=== PATIENT | male | born 1985 | race African-American/Black ===

== ENCOUNTER 2017-02-05 08:24 | Emergency (ER) | payer SELFPAY ==
[2017-02-05 08:31] VITALS: BP 116/77
--- NOTE | 2017-02-05 10:22 | ED ---
Upper Extremity Pain - HPI Summary HPI Summary: Patient presents with bilateral hand numbness and tingling worst after awakening this morning. He has had similar symptoms in the past, but he comes today because he states his hands "locked up" this morning and he had difficulty moving both of them. 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 Denies other symptoms. He is otherwise healthy, takes no medications and has no other complaints. The numbness and tingling improved shortly after he began to move them. However, he was concerned. - History of Current Complaint Chief Complaint: EDExtremityUpper Stated Complaint: CANT MOVE HANDS,BOTH ARE PAINFUL AND TINGLY Time Seen by Provider: 02/05/17 08:38 Hx Obtained From: Patient Mechanism Of Injury: Unknown Onset/Duration: Started Hours Ago Timing: Intermittent, Lasting Minutes Severity Initially: Moderate Severity Currently: Mild Pain Location: Wrist, Hand Character: Unable to Describe - numbness/tingling Aggravating Factor(s): Nothing Alleviating Factor(s): Nothing Associated Signs & Symptoms: Positive: Numbness/Tingling - Risk Factors Non-Orthopedic Risk Factor: Negative DVT Risk Factors: Negative Septic Arthritis Risk Factor: Negative Compartment Syndrome Risk Factors: Paresthesias - Allergies/Home Medications Allergies/Adverse Reactions: Allergies Allergy/AdvReac Type Severity Reaction Status Date / Time No Known Allergies Allergy Verified 02/05/17 08:51 PMH/Surg Hx/FS Hx/Imm Hx Previously Healthy: Yes - Immunization History Hx Pertussis Vaccination: No Immunizations Up to Date: Unable to Obtain/Confirm Infectious Disease History: No Infectious Disease History: Denies: Traveled Outside the [place] in Last 30 Days - Social History Occupation: Employed Full-time Lives: With Family Alcohol Use: Rare Hx Substance Use: Yes Substance Use Type: Reports: Marijuana Substance Use Comment - Amount & Last Used: occasional Hx Tobacco Use: No Smoking Status (MU): Never Smoked Tobacco Review of Systems Constitutional: Negative Eyes: Negative Cardiovascular: Negative Respiratory: Negative Positive: no symptoms reported, see HPI Positive: Arthralgia, Myalgia Neurological: Negative Psychological: Normal All Other Systems Reviewed And Are Negative: Yes Physical Exam Triage Information Reviewed: Yes Vital Signs On Initial Exam: Initial Vitals Temp Pulse Resp BP Pulse Ox 97.5 F 56 18 116/77 98 02/05/17 08:28 02/05/17 08:28 02/05/17 08:28 02/05/17 08:28 02/05/17 08:28 Completion Of Physical Exam Limited Due To: Dementia Appearance: Positive: Well-Appearing, No Pain Distress, Well-Nourished Skin: Positive: Warm, Skin Color Reflects Adequate Perfusion Head/Face: Positive: Normal Head/Face Inspection Eyes: Positive: EOMI, KARSTEN, Conjunctiva Clear Neck: Positive: Supple, Nontender, No Lymphadenopathy Respiratory/Lung Sounds: Positive: Clear to Auscultation, Breath Sounds Present Cardiovascular: Positive: RRR Musculoskeletal: Positive: Strength/ROM Intact, Pain @ - CT band bilaterally on palpation Neurological: Positive: Sensory/Motor Intact, Speech Normal Psychiatric: Positive: Normal - Benedict Coma Scale Coma Scale Total: 15 Diagnostics - Vital Signs Vital Signs Temp Pulse Resp BP Pulse Ox 02/05/17 09:55 60 18 02/05/17 08:36 97.5 F 56 18 116/77 100 02/05/17 08:28 97.5 F 56 18 116/77 98 - Laboratory Lab Statement: Any lab studies that have been ordered have been reviewed, and results considered in the medical decision making process. Course/Dx - Course Course Of Treatment: Tinels -, Trae -, phalen test +, patient is given 2 cock up splints, encouraged NSAIDS, ice and rest. Follow up to ortho given if symptoms persist. Dx as carpal tunnel. patient OK with discharge. - Diagnoses Differential Diagnosis/HQI/PQRI: Positive: Strain, Sprain, Other - CT Provider Diagnoses: Carpal tunnel syndrome Discharge - Discharge Plan Condition: Stable Disposition: HOME Patient Education Materials: Paresthesia (ED) Forms: *Work Release Referrals: Non Staff,Doctor [Primary Care Provider] - Diamond Eason MD [Medical Doctor] - Additional Instructions: Use cock up splint overnight only Rest the wrists and hands as much as possible ibuprofen 600mg three times daily Follow up with Dr. Eason or Dr. Ludwig as needed
== END 2017-02-05 10:10 | disposition home or self-care (01) ==
LOC: ED 08:24
DX: G56.03 Carpal tunnel syndrome, bilateral upper limbs (principal)
CPT/HCPCS: 99281

== ENCOUNTER 2018-05-31 18:48 | Emergency (ER) | payer MEDICAID ==
[2018-05-31 18:53] VITALS: BP 133/84
--- NOTE | 2018-05-31 19:00 | ED ---
HPI Chest Pain - HPI Summary HPI Summary: The pt is a 33 y/o male presenting to [facility] c/o CP for two weeks worsened today. He notes RUE weakness , L eye pain , nausea, vomiting , weakness , bilateral UE numbness, MOCK (2 days), chills and upper abd pain but denies LOC, diarrhea, and fever. He went to work normally today morning but the sx worsened at midday. His brother had to pick him because he couldnt drive back home to [place]. The CP is aggravated by deep breaths and rising from a sitting position. - History of Current Complaint Chief Complaint: EDChestPainROMI Time Seen by Provider: 05/31/18 18:55 Hx Obtained From: Patient Onset/Duration: Still Present, Worse Since - Today afternoon Timing: Constant Current Severity: Moderate Pain Intensity: 7 Pain Scale Used: 0-10 Numeric Aggravating Factor(s): Position, Deep Breaths Alleviating Factor(s): Nothing Associated Signs and Symptoms: Positive: Chest Pain, Headaches, Numbness, Weakness, Chills, Nausea, Abdominal Pain, Vomiting. Negative: Fever - Allergy/Home Medications Allergies/Adverse Reactions: Allergies Allergy/AdvReac Type Severity Reaction Status Date / Time No Known Allergies Allergy Verified 02/05/17 08:51 PMH/Surg Hx/FS Hx/Imm Hx Previously Healthy: No Endocrine/Hematology History: Denies: Hx Diabetes Cardiovascular History: Denies: Hx Hypertension Sensory History: Denies: Hx Deafness Neurological History: Reports: Other Neuro Impairments/Disorders - Parasthesia- 2017 - Cancer History Cancer Type, Location and Year: None - Surgical History Surgery Procedure, Year, and Place: None reported Infectious Disease History: No Infectious Disease History: Denies: Traveled Outside the [place] in Last 30 Days - Family History Known Family History: Positive: None - Social History Occupation: Employed Full-time Lives: With Family Alcohol Use: Rare Hx Substance Use: Yes Substance Use Type: Reports: Marijuana Substance Use Comment - Amount & Last Used: occasional Hx Tobacco Use: No Smoking Status (MU): Never Smoked Tobacco Review of Systems Constitutional: Negative - LOC Positive: Chills. Negative: Fever Positive: Chest Pain Positive: Abdominal Pain, Vomiting, Nausea. Negative: Diarrhea Positive: Headache, Weakness - RUE , Numbness All Other Systems Reviewed And Are Negative: Yes Physical Exam - Summary Physical Exam Summary: Appearance: Well-appearing, Well-nourished, lying in bed comfortably Skin: Warm, dry, no obvious rash Eyes: sclera anicteric, no conjunctival pallor ENT: mucous membranes moist, pharynx appears normal Neck: Supple, nontender Respiratory: Clear to auscultation, no signs of respiratory distress Cardiovascular: Normal S1, S2. No murmurs. Normal distal pulses in tibial and radial bilaterally. Abdomen: Soft, epigastric tenderness without peritoneal signs , normal active bowel sounds present Musculoskeletal: Normal, Strength/ROM Intact Neurological: A&Ox3, awake and alert, mentation is normal, speech is fluent and appropriate Psychiatric: affect is normal, does not appear anxious or depressed GCS: 15 Triage Information Reviewed: Yes Vital Signs On Initial Exam: Initial Vitals Temp Pulse Resp BP Pulse Ox 98.2 F 70 16 133/84 98 05/31/18 18:51 05/31/18 18:51 05/31/18 18:51 05/31/18 18:51 05/31/18 18:51 Vital Signs Reviewed: Yes Diagnostics - Vital Signs Vital Signs Temp Pulse Resp BP Pulse Ox 05/31/18 18:51 98.2 F 70 16 133/84 98 - Laboratory Result Diagrams: 05/31/18 19:10 05/31/18 19:10 Lab Statement: Any lab studies that have been ordered have been reviewed, and results considered in the medical decision making process. - CT Brain CT CT Interpretation Completed By: Radiologist - IMPRESSION:No acute intracranial abnormality. The ED physician reviewed this radiology report. - Ultrasound No standard instances Ultrasound Interpretation Completed By: Radiologist - GALLBLADDER US IMPRESSION : No acute findings. No shadowing gallstones or gallbladder wall thickening. 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 He notes RUE weakness , L eye pain , nausea, vomiting , weakness , bilateral UE numbness, MOCK , chills and upper abd pain but denies LOC, diarrhea , and fever. A physical exam revealed epigastric tenderness without peritoneal signs. An EKG reveals ST elevation and probable early repolarization pattern . A gall bladder US and Brain CT are both unremarkable. In the ED course, pt was given Ketorolac 10 mg IV, N.s 0.9% 2000ml IV and Ondansetron 8mg IV which improved the symptoms. Allergies noted. - Chest Pain Differential Diagnosis/HQI/PQRI: Acute OK, ACS, Angina, Chest Wall, Lower Respiratory Infection, Pulmonary Embolism - Diagnoses Provider Diagnoses: Non-cardiac chest pain Discharge - Sign-Out/Discharge Documenting (check all that apply): Patient Departure - DC - Discharge Plan Condition: Good Disposition: HOME Prescriptions: Prochlorperazine TAB* [Compazine Tab*] 10 mg PO Q8H PRN #10 tab PRN Reason: Nausea/Vomiting Patient Education Materials: Acute Headache (ED), Acute Nausea and Vomiting (ED ) Referrals: [facility] [Outside] Non Staff,Doctor [Medical Doctor] - - Billing Disposition and Condition Condition: GOOD Disposition: Home - Attestation Statements Document Initiated by Gerardo: Yes Documenting Scribe: Lenora Orellana Provider For Whom Gerardo is Documenting (Include Credential): Dr. Frank Patricio MD Scribe Attestation: Lenora Angelo , scribed for Dr. Frank Patricio MD on 06/06/18 at 0847. Scribe Documentation Reviewed: Yes Provider Attestation: The documentation as recorded by the Lenora ascencio accurately reflects the service I personally performed and the decisions made by me, Dr. Frank Patricio MD
[2018-05-31] MEDS ORDERED: Ketorolac INJ* 30 MG/ML 1 ML VIAL IV PUSH ONE (19:05)
[2018-05-31] MEDS ORDERED: Ondansetron INJ* 2 MG/ML VIAL IV ONE (19:05)
[2018-05-31] MEDS ORDERED: NS 0.9% 1000 ML* 2,000 ML IV ONE (19:05)
[2018-05-31 19:29] LABS: ABS Basophils 0 10^3/ul (0-0.2); ABS Eosinophils 0 10^3/ul (0-0.6); ABS Monocytes 0.7 10^3/ul (0-0.8); ABS Neutrophils 14.1 10^3/ul (1.5-7.7); ABS Nucleated RBC 0 10^3/ul; Eosinophil % 0.2 % (0-6); Hematocrit 43 % (42-52); Hemoglobin 14.8 g/dl (14.0-18.0); Lymphocyte % 6.1 % (25-47); Mean Corpuscular HGB Conc 35 g/dl (31-36); Mean Corpuscular Hemoglobin 32 pg (27-31); Mean Corpuscular Volume 91 fL (80-94); Mean Platelet Volume 9.1 fL (7.4-10.4); Nucleated Red Blood Cells % 0; Platelet Count 183 10^3/ul (150-450); Red Blood Count 4.69 10^6/ul (4.00-5.40); Red Cell Distribution Width 12 % (10.5-15); White Blood Count 15.9 10^3/ul (3.5-10.8)
[2018-05-31 20:23] LABS: Urine Appearance Cloudy; Urine Blood Negative (Negative); Urine Color Yellow; Urine Ketones 1+ (Negative); Urine Protein 1+(30 mg/dL) (Negative); Urine Red Blood Cell Absent (Absent); Urine Specific Gravity 1.017 (1.010-1.030); Urine Urobilinogen Negative (Negative); Urine White Blood Cell Trace(0-5/hpf) (Absent)
== END 2018-05-31 22:00 | disposition home or self-care (01) ==
LOC: ED 18:48
DX: R07.9 Chest pain, unspecified (principal); I45.10 Unspecified right bundle-branch block
CPT/HCPCS: 36415; 70450; 76705; 80053; 81003; 81015; 83690; 84484; 85025; 87086; 93005; 96361; 96374; 96375; 99283; J1885; J2405

== ENCOUNTER 2018-09-27 08:19 | Emergency (ER) | payer SELFPAY ==
[2018-09-27] MEDS ORDERED: Ketorolac INJ* 60 MG/2 ML VIAL IM ONE (10:18)
[2018-09-27 10:38] VITALS: BP 157/85
--- NOTE | 2018-09-27 14:26 | ED ---
Upper Extremity Pain - HPI Summary HPI Summary: Patient is a 33 -year-old male presenting to the ED with right shoulder pain. He states the pain began suddenly without injury or trauma. He states he began to feel discomfort approximately 5-6 days ago when the arm began to throb, achy and have limited range of motion. He states it progressed into not being able to abduct his arm and he arrives in sling. Denies N/T. Denies temperature or color changes. He has never injured the shoulder in the past. - History of Current Complaint Chief Complaint: KarolinaChemalanceMandie Stated Complaint: RIGHT SHOULDER PAIN Time Seen by Provider: 09/27/18 08:25 Hx Obtained From: Patient Onset/Duration: Started Hours Ago Timing: Constant Severity Initially: Moderate Severity Currently: Moderate Pain Location: Shoulder Character: Aching Aggravating Factor(s): Movement, Lifting, Flexion, Extension, Internal/External Rotation Alleviating Factor(s): Rest, Ice Associated Signs & Symptoms: Negative: Swelling, Redness, Bruising, Numbness/ Tingling Related History: Dominant Hand Right - Risk Factors Non-Orthopedic Risk Factor: Negative DVT Risk Factors: Negative Septic Arthritis Risk Factor: Negative Compartment Syndrome Risk Factors: Pain - Allergies/Home Medications Allergies/Adverse Reactions: Allergies Allergy/AdvReac Type Severity Reaction Status Date / Time No Known Allergies Allergy Verified 09/27/18 08:20 PMH/Surg Hx/FS Hx/Imm Hx Previously Healthy: Yes Endocrine/Hematology History: Denies: Hx Diabetes Cardiovascular History: Denies: Hx Hypertension Sensory History: Denies: Hx Deafness Neurological History: Reports: Other Neuro Impairments/Disorders - Parasthesia- 2017 - Cancer History Cancer Type, Location and Year: None - Surgical History Surgery Procedure, Year, and Place: None reported - Immunization History Hx Pertussis Vaccination: No Immunizations Up to Date: Yes Infectious Disease History: No Infectious Disease History: Denies: Traveled Outside the [place] in Last 30 Days - Family History Known Family History: Positive: None - Social History Occupation: Employed Full-time Lives: With Family Alcohol Use: None Hx Substance Use: Yes Substance Use Type: Reports: Marijuana Substance Use Comment - Amount & Last Used: occasional Hx Tobacco Use: No Smoking Status (MU): Never Smoked Tobacco Review of Systems Constitutional: Negative Negative: Fever, Chills, Fatigue Negative: Palpitations, Chest Pain Negative: Shortness Of Breath, Cough Genitourinary: Negative Positive: no symptoms reported, see HPI Positive: Arthralgia - right shoulder, Myalgia Skin: Negative Neurological: Negative Negative: Headache, Weakness, Paresthesia, Numbness All Other Systems Reviewed And Are Negative: Yes Physical Exam Triage Information Reviewed: Yes Vital Signs On Initial Exam: Initial Vitals Temp Pulse Resp BP Pulse Ox 98.6 F 70 15 149/89 96 09/27/18 08:22 09/27/18 08:22 09/27/18 08:22 09/27/18 08:22 09/27/18 08:22 Vital Signs Reviewed: Yes Appearance: Positive: Well-Appearing, Well-Nourished Skin: Positive: Warm, Skin Color Reflects Adequate Perfusion Head/Face: Positive: Normal Head/Face Inspection Eyes: Positive: EOMI, KARSTEN, Conjunctiva Clear Neck: Positive: Supple, No Lymphadenopathy Respiratory/Lung Sounds: Positive: Clear to Auscultation, Breath Sounds Present Cardiovascular: Positive: RRR, Pulses are Symmetrical in both Upper and Lower Extremities Musculoskeletal: Positive: Limited @ - abduction of the R shoulder, Pain @ - right shoulder Neurological: Positive: Speech Normal Psychiatric: Positive: Affect/Mood Appropriate AVPU Assessment: Alert Diagnostics - Vital Signs Vital Signs Temp Pulse Resp BP Pulse Ox 09/27/18 10:37 98.2 F 67 16 157/85 97 09/27/18 08:22 98.6 F 70 15 149/89 96 - Laboratory Lab Statement: Any lab studies that have been ordered have been reviewed, and results considered in the medical decision making process. Course/Dx - Course Course Of Treatment: During the course treatment, the patient's evaluated for right shoulder injury. X-rays obtained which showed calcific tendinitis. Most notably over the infraspinatus. He endorses overuse to the right shoulder, but denies any injury or trauma. Patient is unable to abduct past 90, he is endorsing pain to the anterior portion of the right shoulder. This is likely overuse injury/tendinitis. I have encouraged him to seek help through an orthopedic physician and probable further treatment with physical therapy. He remains in the sling but I have given him exercises to prevent frozen shoulder. - Diagnoses Differential Diagnosis/HQI/PQRI: Positive: Strain, Sprain Provider Diagnoses: Tendinitis Discharge - Sign-Out/Discharge Documenting (check all that apply): Patient Departure Patient Received Moderate/Deep Sedation with Procedure: No - Discharge Plan Condition: Stable Disposition: HOME Prescriptions: Ketorolac TAB * [Toradol TAB *] 10 mg PO Q6H #16 tab Patient Education Materials: Calcific Tendinitis (ED) Forms: *Work Release Referrals: Can Elder MD [Medical Doctor] - No Primary Care Phys,NOPCP [Primary Care Provider] - Additional Instructions: Please follow-up with orthopedics Toradol 4 times daily 4 days Did not take ibuprofen while taking this medication You may take Tylenol up to 4 times daily as needed for pain as well Use these intermittently Keep the arm in sling as needed for comfort Continue to move the arm about and use pendulum exercises - Billing Disposition and Condition Condition: STABLE Disposition: Home
== END 2018-09-27 10:37 | disposition home or self-care (01) ==
LOC: ED 08:19
DX: M75.91 Shoulder lesion, unspecified, right shoulder (principal)
CPT/HCPCS: 96372; 99282; J1885

== ENCOUNTER 2019-02-01 12:07 | Emergency (ER) | payer SELFPAY ==
--- NOTE | 2019-02-01 12:26 | ED ---
Upper Extremity Pain - HPI Summary HPI Summary: The patient is a 23 y/o M presenting to [facility] with a chief complaint of gradual onset pain in the right shoulder starting two months ago which resolved, but recently returned. 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 He was told to come to the ED by work staff despite knowing that he has a previous rotator cuff injury. He states that after being in the ED a few months ago, he was told about the injury, and he thought it was getting better until it recently began to painful again. He additionally c/o decreased ROM. He denies weakness in the RUE. No other past medical hx. Surgical hx of splenectomy. No FHx. Nonsmoker, no EtOH, marijuana use. - History of Current Complaint Chief Complaint: EDShoulderClavicDavid Stated Complaint: RIGHT SHOULER PAIN Time Seen by Provider: 02/01/19 12:18 Hx Obtained From: Patient Mechanism Of Injury: Other - previous rotator cuff injury Onset/Duration: Started Days Ago, Still Present, Worse Since - today Timing: Lasting Days Severity Initially: Moderate Severity Currently: Moderate Pain Location: Arm - right shoulder Character: Aching Aggravating Factor(s): Movement Alleviating Factor(s): Rest Associated Signs & Symptoms: Positive: Other - decreased ROM. Negative: Weakness - Allergies/Home Medications Allergies/Adverse Reactions: Allergies Allergy/AdvReac Type Severity Reaction Status Date / Time No Known Allergies Allergy Verified 02/01/19 12:13 PMH/Surg Hx/FS Hx/Imm Hx Endocrine/Hematology History: Denies: Hx Diabetes Cardiovascular History: Denies: Hx Hypercholesterolemia, Hx Hypertension Sensory History: Denies: Hx Deafness Neurological History: Reports: Other Neuro Impairments/Disorders - Parasthesia- 2017 - Cancer History Cancer Type, Location and Year: None - Surgical History Surgical History: None Surgery Procedure, Year, and Place: none Infectious Disease History: No Infectious Disease History: Denies: Traveled Outside the [place] in Last 30 Days - Family History Known Family History: Positive: Other - NEGATIVE: HLD Negative: Cardiac Disease, Hypertension, Diabetes - Social History Alcohol Use: None Hx Substance Use: Yes Substance Use Type: Reports: Marijuana Substance Use Comment - Amount & Last Used: occasional Hx Tobacco Use: No Smoking Status (MU): Never Smoked Tobacco Review of Systems Positive: Decreased ROM - in right shoulder, Other - pain in the right shoulder radiating to middle back Negative: Weakness All Other Systems Reviewed And Are Negative: Yes Physical Exam - Summary Physical Exam Summary: VITAL SIGNS: Reviewed. GENERAL: Patient is a well-developed and nourished male who is lying comfortable in the stretcher. Patient is not in any acute respiratory distress. HEAD AND FACE: No signs of trauma. No ecchymosis, hematomas or skull depressions. No sinus tenderness. EYES: PERRLA, EOMI x 2, No injected conjunctiva, no nystagmus. EARS: Hearing grossly intact. Ear canals and tympanic membranes are within normal limits. MOUTH: Oropharynx within normal limits. NECK: Supple, trachea is midline, no adenopathy, no JVD, no carotid bruit, no c- spine tenderness, neck with full ROM. CHEST: Symmetric, no tenderness at palpation. LUNGS: Clear to auscultation bilaterally. No wheezing or crackles. CVS: Regular rate and rhythm, S1 and S2 present, no murmurs or gallops appreciated. ABDOMEN: Soft, non-tender. No signs of distention. No rebound, no guarding, and no masses palpated. Bowel sounds are normal. EXTREMITIES: Decreased abduction at 45 degrees in the RUE but otherwise FROM in all major joints, no edema, no cyanosis or clubbing. No ecchymosis, swelling, or erythema of RUE. NEURO: Alert and oriented x 3. No acute neurological deficits. Speech is normal and follows commands. SKIN: Dry and warm. Triage Information Reviewed: Yes Vital Signs On Initial Exam: Initial Vitals Temp Pulse Resp BP Pulse Ox 97.8 F 64 16 140/91 98 02/01/19 12:10 02/01/19 12:10 02/01/19 12:10 02/01/19 12:10 02/01/19 12:10 Vital Signs Reviewed: Yes Diagnostics - Vital Signs Vital Signs Temp Pulse Resp BP Pulse Ox 02/01/19 12:10 97.8 F 64 16 140/91 98 - Laboratory Lab Statement: Any lab studies that have been ordered have been reviewed, and results considered in the medical decision making process. Re-Evaluation - Re-Evaluation First Eval Re-Evaluation Time: 12:25 Comment: We discussed plan for placing a sling and discharge home with orthopedic follow up. Course/Dx - Course Assessment/Plan: The patient is a 23 y/o M presenting to [facility] with a chief complaint of gradual onset pain in the right shoulder starting two months ago which resolved, but recently returned. 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 He was told to come to the ED by work staff despite knowing that he has a previous rotator cuff injury. He states that after being in the ED a few months ago, he was told about the injury, and he thought it was getting better until it recently began to painful again. He additionally c/o decreased ROM. He denies weakness in the RUE. No other past medical hx. Surgical hx of splenectomy. No FHx. Nonsmoker, no EtOH, marijuana use. The patient has a rotator cuff injury, which is chronic. There is no acute trauma or injury. Therefore, I discussed my physical exam and findings with the patient and the need to follow-up with orthopedics. The patient understands and agrees. The patient reports that he is not in significant pain. The patient was given a sling and discharged home with follow-up with orthopedics. - Diagnoses Provider Diagnoses: Rotator cuff injury Discharge - Sign-Out/Discharge Documenting (check all that apply): Patient Departure - Patient will be discharged home. Patient Received Moderate/Deep Sedation with Procedure: No - Discharge Plan Condition: Stable Disposition: HOME Patient Education Materials: Rotator Cuff Injury (ED) Referrals: Luis Mike MD [Medical Doctor] - 1 Day Additional Instructions: Follow up with orthopedics tomorrow. RETURN TO THE EMERGENCY DEPARTMENT FOR ANY NEW OR WORSENING SYMPTOMS. - Billing Disposition and Condition Condition: STABLE Disposition: Home - Attestation Statements Document Initiated by Gerardo: Yes Documenting Scribe: Blanca Malcolm Provider For Whom Gerardo is Documenting (Include Credential): Dr. Kenton Leggett MD Scribe Attestation: Blanca Angelo scribed for Dr. Kenton Leggett MD on 02/01/19 at 1315. Scribe Documentation Reviewed: Yes Provider Attestation: The documentation as recorded by the Blanca ascencio accurately reflects the service I personally performed and the decisions made by me, Dr. Kenton Leggett MD Status of Scribe Document: Ready
[2019-02-01 13:03] VITALS: BP 132/87
== END 2019-02-01 12:36 | disposition home or self-care (01) ==
LOC: ED 12:07
DX: S46.001A Unspecified injury of muscle(s) and tendon(s) of the rotator cuff of right shoulder, initial encounter (principal); X50.9XXA Other and unspecified overexertion or strenuous movements or postures, initial encounter; Y92.9 Unspecified place or not applicable; Y99.0 Civilian activity done for income or pay
CPT/HCPCS: 99281

== ENCOUNTER 2019-07-12 16:15 | Emergency (ER) | payer SELFPAY ==
--- NOTE | 2019-07-12 17:09 | ED ---
Back Pain - HPI Summary HPI Summary: Pt. is a 34 y.o male who presents to the ER for a low back injury that occurred yesterday. Pt. states he was pushing his kids on a sleigh yesterday and developed low back pain. Pain does not radiate into legs. Denies fever, numbness , tingling, weakness, saddle paresthesias, loss of bowel or bladder dysfunction. NO past medical hx. Sxs are mild in severity. Movement makes sxs worse. Rest makes sxs better. - History of Current Complaint Chief Complaint: EDBackInjuryPain Stated Complaint: HURT LOWER BACK PER PT Time Seen by Provider: 07/12/19 16:44 Hx Obtained From: Patient Pain Intensity: 6 - Allergies/Home Medications Allergies/Adverse Reactions: Allergies Allergy/AdvReac Type Severity Reaction Status Date / Time No Known Allergies Allergy Verified 07/12/19 16:19 PMH/Surg Hx/FS Hx/Imm Hx Previously Healthy: Yes Endocrine/Hematology History: Denies: Hx Diabetes Cardiovascular History: Denies: Hx Hypercholesterolemia, Hx Hypertension Sensory History: Denies: Hx Deafness Neurological History: Reports: Other Neuro Impairments/Disorders - Parasthesia- 2017 - Cancer History Cancer Type, Location and Year: None - Surgical History Surgery Procedure, Year, and Place: none Infectious Disease History: No Infectious Disease History: Denies: Traveled Outside the [place] in Last 30 Days - Family History Known Family History: Positive: Other - NEGATIVE: HLD Negative: Cardiac Disease, Hypertension, Diabetes - Social History Alcohol Use: Occasionally Hx Substance Use: Yes Substance Use Type: Reports: None Substance Use Comment - Amount & Last Used: occasional Hx Tobacco Use: No Smoking Status (MU): Never Smoked Tobacco Review of Systems Constitutional: Negative Negative: Fever Gastrointestinal: Negative Genitourinary: Negative Negative: incontinence Positive: Other - Low back pain Skin: Negative Neurological: Negative Negative: Weakness, Paresthesia, Numbness All Other Systems Reviewed And Are Negative: Yes Physical Exam Triage Information Reviewed: Yes Vital Signs On Initial Exam: Initial Vitals Temp Pulse Resp BP Pulse Ox 97.6 F 72 14 132/85 98 07/12/19 16:16 07/12/19 16:16 07/12/19 16:16 07/12/19 16:16 07/12/19 16:16 Vital Signs Reviewed: Yes Appearance: Positive: Well-Appearing - Pt. sitting in chair in NAD. Skin: Positive: Warm, Dry Head/Face: Positive: Normal Head/Face Inspection Eyes: Positive: Normal, EOMI, KARSTEN Neck: Positive: Supple Musculoskeletal: Positive: Normal, Strength/ROM Intact, Other - 5/5 strength in bilateral LEs with flxion and dorsiflexion. Lumbar paraspinal tenderness. Ambulatory without difficulty. Neurological: Positive: Normal, CN Intact II-III Psychiatric: Positive: Affect/Mood Appropriate Procedures - Sedation Patient Received Moderate/Deep Sedation with Procedure: No Diagnostics - Vital Signs Vital Signs Temp Pulse Resp BP Pulse Ox 07/12/19 16:16 97.6 F 72 14 132/85 98 - Laboratory Lab Statement: Any lab studies that have been ordered have been reviewed, and results considered in the medical decision making process. Back Pain Course/Dx - Course Course Of Treatment: Pt. with low back pain after pusing sleigh. No neuro deficits or signs of cauda equina syndrome. Afebrile. Will rx a few days of flexeril and NSAID. Advised warm compresses and stretching. Will f.u with [facility]. Warning signs given for return. Pt. understands and agrees with plan. - Diagnoses Differential Diagnosis/HQI/PQRI: Positive: Fracture, Herniated Disc, Strain, Sprain Provider Diagnoses: Lumbar strain Discharge ED - Sign-Out/Discharge Documenting (check all that apply): Patient Departure - Discharge Plan Condition: Good Disposition: HOME Prescriptions: Cyclobenzaprine TAB* [Flexeril 10 MG TAB*] 10 mg PO TID PRN #9 tab PRN Reason: Pain - Moderate Ibuprofen TAB* [Motrin TAB* 800 MG] 800 mg PO TID #20 tab Patient Education Materials: Low Back Strain (ED), Lower Back Exercises (ED) Forms: *Work Release Referrals: [facility] [Outside] [facility] [Outside] Additional Instructions: Schedule follow up appointment with [facility] if pain persist Medication as directed Apply warm compresses Avoid heavy lifting Gentle stretching and massage Return to ER if symptoms change or worsen - Billing Disposition and Condition Condition: GOOD Disposition: Home - Attestation Statements Provider Attestation: I was available for consult. This patient was seen by the DARRYL. The patient was not presented to, seen by, or examined by me. Dean Fallon MD
[2019-07-12 17:26] VITALS: BP 135/73
== END 2019-07-12 17:26 | disposition home or self-care (01) ==
LOC: ED 16:15
DX: M54.5 Low back pain (principal)
CPT/HCPCS: 99282